=== PATIENT | female | born 1990 | race Caucasian/White ===

== ENCOUNTER 2020-03-05 19:06 | Emergency (ER) | payer MEDICAID ==
[~2020-03-05] VITALS: Ht 177.8 cm; Wt 54.4 kg
--- NOTE | 2020-03-05 19:06 | NUR ---
Pt brought in by [place] [employer] via rescue. Pt is alert oriented x 4, and verbally responsive. Pt was found on the street, and she claims that she is coming off heroin. Pt also states that she is homeless. Not in any cardio-respiratory distress. Slightly nauseated. No other GI/ issues. Slight weakness. Bed placed on low position, and side rails up x 2. Safety precautions maintained.
--- NOTE | 2020-03-05 19:10 | NUR ---
Pt seen by Dr. Jack for MSE.
[2020-03-05] MEDS ORDERED: LORAZEPAM 0.5 MG TABLET PO ONE (19:15)
[2020-03-05] MEDS ORDERED: DIPHENOXYLATE HCL/ATROP SULF TABLET PO ONE (19:15)
[2020-03-05] MEDS ORDERED: BENZTROPINE MESYLATE 0.5 MG TABLET PO ONE (19:15)
[2020-03-05] MEDS ORDERED: HYDROCODONE/APAP 10-325 MG TABLET PO ONE (19:15)
[2020-03-05] MEDS ORDERED: PROCHLORPERAZINE EDISYLATE 10 MG/2 ML VIAL IM ONE (19:15)
[2020-03-05] MEDS ORDERED: PROCHLORPERAZINE EDISYLATE 10 MG/2 ML VIAL ONE (19:25)
[2020-03-05] MEDS ORDERED: LORAZEPAM 0.5 MG TABLET ONE (19:27)
[2020-03-05] MEDS ORDERED: HYDROCODONE/APAP 10-325 MG TABLET ONE (19:27)
[2020-03-05] MEDS ORDERED: BENZTROPINE MESYLATE 0.5 MG TABLET ONE (19:27)
[2020-03-05] MEDS ORDERED: DIPHENOXYLATE HCL/ATROP SULF TABLET ONE (19:28)
--- NOTE | 2020-03-05 20:07 | NUR ---
Pt is just resting in bed at this time. Allowing side effects of Ativan and [place] given to wear off. Continued safety precautions.
--- NOTE | 2020-03-05 21:51 | NUR ---
Vitals remain stable at this time. Resting in bed, arousable but appears groggy. Unable to stand straight and walk with steady gait. Kept in bed until able to safely ambulate from ER.
--- NOTE | 2020-03-05 22:59 | NUR ---
Pt still difficult to full arouse from sleep. Stable in bed. No signs of alcohol or substance abuse withdrawal at this time.
--- NOTE | 2020-03-05 23:24 | NUR ---
Patient is now alert and oriented x 4, and fully awake. Patient is ambulatory with steady gait. Already given written and verbal discharge instructions. Patient verbalizes understanding of instructions. Refuses offer of [facility] placement. Patient given list of available shelters and substance abuse clinics in surrounding area. Refuses assistance at this time. Walked out of ER in steady gait, meal provided.
[2020-03-05 23:25] VITALS: BP 120/80
== END 2020-03-05 23:26 | disposition home or self-care (01) ==
LOC: ER 19:06
DX: F11.23 Opioid dependence with withdrawal (principal); F10.239 Alcohol dependence with withdrawal, unspecified; Y90.9 Presence of alcohol in blood, level not specified; Z59.0 Homelessness; F15.10 Other stimulant abuse, uncomplicated; F17.210 Nicotine dependence, cigarettes, uncomplicated
CPT/HCPCS: 96372; 99284; 99406; J0780; A4663